=== PATIENT | male | born 1960 | race African-American/Black ===

== ENCOUNTER → 2016-12-27 | Outpatient (CLI) | payer OTHER ==
[~2016-12-27] VITALS: Ht 180.3 cm; Wt 218.0 kg
[~2016-12-27] MED LIST: ASPI81CH CHEW; CHLORHEXIDINE GLUCONATE 2 % 1 PACK (2 CLOTHS) TOPICAL PRN; CLON0.2T PO; DICL75TA PO; DO NOT ADM ANY ANTICOAGULANT DRUGS PRN; EMPA1TAB PO; HYDR-3583 PO; INSULIN HUMAN REGULAR 1,000 UNITS/10 ML VIAL SQ PRN; LACTATED RINGER'S 1000 ML INJ 1,000 ML ONE; LACTATED RINGER'S 1000 ML IV PRN; LIDOCAINE HCL 1% PF 5 ML AMPULE OTHER ONE; LISI-515 PO; METO50TA PO; METOPROLOL TARTRATE 25 MG TAB PO PRN; POVIDONE IODINE 5% (ANTISEPSIS KIT) 4 APPLICATIONS EACH NARE PRN; PROPOFOL 200 MG/20 ML AMP IV ONE; SODIUM CHLORID 0.9% 500 ML IV PRN; SPIR25TA3 PO; VENTAER INH
--- NOTE | 2016-12-27 12:03 | GIPROC ---
[facility] [address] [facility]. [facility], [id number] EGD WITH DILATION PROCEDURE REPORT EXAM DATE: 12/27/2016 PATIENT NAME: Jonathan White MR#: [id number] BIRTHDATE: 1960 ATTENDING: Cortney Cleveland MD ORDER #: [id number] TESTER WASTE DISPOSAL LEAKAGE: Amauri Powers and Alireza Rodriguez STATUS: outpatient INDICATIONS: The patient is a 56 yr old male here for an EGD with dilation due to obesity clearence for gastric sleeve PROCEDURE PERFORMED: EGD w/ biopsy EGD w/ dilation of esophagus via guidewire MEDICATIONS: None and Per Anesthesia. TOPICAL ANESTHETIC: none CONSENT: The patient understands the risks and benefits of the procedure and understands that these risks include, but are not limited to: sedation, allergic reaction, infection, perforation and/or bleeding. Alternative means of evaluation and treatment include, among others: physical exam, x-rays, and/or surgical intervention. The patient elects to proceed with this endoscopic procedure. medical equipment was checked for proper function. Hand hygiene and appropriate measures for infection prevention was taken. After the risks, benefits and alternatives of the procedure were thoroughly explained, Informed consent was verified, confirmed and timeout was successfully executed by the treatment team. The patient was anesthetized with topical anesthesia and the EC-3490Li (Pedi C) endoscope was introduced through the mouth and advanced to the second portion of the duodenum. The instrument was slowly withdrawn as the mucosa was fully examined. Gastritis antrum-biopsy duodenitis second portion-biopsy esophagitis distal esophagus -biopsy stricture distal esophagus s/p dilatation. Dilation was performed at gastroesophageal junction. DILATOR: SIZE(S): RESISTANCE: HEME: APPEARANCE: Dilator: Savary over guidewire Size(s): 16 COMMENT: Retroflexed views revealed a hiatal hernia ADVERSE EVENTS: There were no complications. IMPRESSIONS: 1. Gastritis antrum-biopsy duodenitis second portion-biopsy esophagitis distal esophagus -biopsy stricture distal esophagus s/p dilatation 2. Retroflexed views revealed a hiatal hernia RECOMMENDATIONS: 1. Await biopsy results. Biopsy results will not be ready for 7-10 days. If you don't hear from us in two weeks, call our office for biopsy results. 2. Anti-reflux regimen 3. Continue PPI 4. Dilatations PRN 5. Ok for bariatric surgery from gi point REPEAT EXAM: EGD pending biopsy results Cortney Cleveland MD eSigned: Cortney Cleveland MD 12/27/2016 12:03 PM cc: Lavern wolf M.D. PATIENT NAME: Jonathan White MR#: [id number]
--- NOTE | 2016-12-27 12:07 | GIPROC ---
[facility] [address] [facility]. [facility], [address] COLONOSCOPY PROCEDURE REPORT EXAM DATE: 12/27/2016 PATIENT NAME: Jonathan White MR #: [id number] BIRTHDATE: 1960 ENDOSCOPIST: Cortney Cleveland MD ORDER #: [id number] PURCHASING BUYER: Amauri Powers and Alireza Rodriguez STATUS: outpatient INDICATIONS: The patient is a 56 yr old male here for a colonoscopy due to screening PROCEDURE PERFORMED: Colonoscopy, screening MEDICATIONS: None and Per Anesthesia. PREP QUALITY: poor PREP TYPE:Other: ESTIMATED BLOOD LOSS: None CONSENT: The patient understands the risks and benefits of the procedure and understands that these risks include, but are not limited to: sedation, allergic reaction, infection, perforation and/or bleeding. Alternative means of evaluation and treatment include, among others: physical exam, x-rays, and/or surgical intervention. The patient elects to proceed with this endoscopic procedure. medical equipment was checked for proper function. Hand hygiene and appropriate measures for infection prevention was taken. After the risks, benefits and alternatives of the procedure were thoroughly explained, Informed consent was verified, confirmed and timeout was successfully executed by the treatment team. A digital exam revealed external hemorrhoids The Pentax EC-3490Li endoscope was introduced through the anus and advanced to the cecum, which was identified by both the appendix and ileocecal valve. The instrument was then slowly withdrawn as the colon was fully examined. COLON FINDINGS: Poor prep. Retroflexed views revealed internal hemorrhoids and Retroflexed views revealed small internal hemorrhoids The scope was then completely withdrawn from the patient and the procedure terminated. PROCEDURE WITHDRAWAL TIME:6minutes ADVERSE EVENTS: There were no complications. IMPRESSIONS: 1. Poor prep 2. Retroflexed views revealed internal hemorrhoids 3. Retroflexed views revealed small internal hemorrhoids 4. Revealed external hemorrhoids RECOMMENDATIONS: Benefiber 2 tsp daily RECALL: Return 6 months Colonoscopy Cortney Cleveland MD eSigned: Cortney Cleveland MD 12/27/2016 12:07 PM cc: Lavern Keith M.D and Jose R Santiago M.D.
[2016-12-27 13:15] VITALS: BP 159/81; PULSE 67; RESP 18; TEMP 98; O2SAT 96
--- NOTE | 2016-12-27 16:43 | EKG ---
Date Performed: 12/27/2016 Time Performed: 09:28:25 PTAGE: 56 years EKG: Sinus rhythm WITH OCCASIONAL VENTRICULAR PREMATURE COMPLEXES LOW QRS VOLTAGE IN PRECORDIAL LEADS POSSIBLE ANTERIO R MYOCARDIAL INFARCTION , OF INDETERMINATE AGE Compared to prior tracing no significant change ABNORM AL ECG PREVIOUS TRACING : 03/04/2011 09.11 DOCTOR: Shaye Burt Interpretating Date/Time 12/27/2016 16:40:13
== END ==
LOC: HEND 08:24
PROVIDERS: ATTEND Internal Medicine Gastroenterology
DX: Z01.818 Encounter for other preprocedural examination (principal); E66.01 Morbid (severe) obesity due to excess calories; Z68.44 Body mass index [BMI] 60.0-69.9, adult; K29.70 Gastritis, unspecified, without bleeding; K29.80 Duodenitis without bleeding; K44.9 Diaphragmatic hernia without obstruction or gangrene; K64.4 Residual hemorrhoidal skin tags; K64.8 Other hemorrhoids; K22.2 Esophageal obstruction; K21.0 Gastro-esophageal reflux disease with esophagitis; R19.8 Other specified symptoms and signs involving the digestive system and abdomen; I10 Essential (primary) hypertension; I25.10 Atherosclerotic heart disease of native coronary artery without angina pectoris; G47.30 Sleep apnea, unspecified; Z95.5 Presence of coronary angioplasty implant and graft; Z91.19 Patient's noncompliance with other medical treatment and regimen
CPT/HCPCS: 00740; 43239; 43248; 45378; 88305; 88312; 93005; C1769; J7120

== ENCOUNTER → 2017-01-06 | Day surgery (SDC) | payer OTHER ==
[~2017-01-06] MED LIST changes: +BUPIVACAINE/EPINEPHRINE 0.25% 50 ML VIAL ONE; -CHLORHEXIDINE GLUCONATE 2 % 1 PACK (2 CLOTHS) TOPICAL PRN; -DO NOT ADM ANY ANTICOAGULANT DRUGS PRN; +EPINEPHrine HCL (1:1000) 30 MG/30 ML VIAL ONE; -INSULIN HUMAN REGULAR 1,000 UNITS/10 ML VIAL SQ PRN; +KETOROLAC TROMETHAMINE 30 MG/ML (IVP) VIAL IV PUSH ONE; -LACTATED RINGER'S 1000 ML IV PRN; -LIDOCAINE HCL 1% PF 5 ML AMPULE OTHER ONE; -METOPROLOL TARTRATE 25 MG TAB PO PRN; +MIDAZOLAM HCL 2 MG/2 ML VIAL ONE; +ONDANSETRON HCL 4 MG/2 ML VIAL IV PUSH ONE; -POVIDONE IODINE 5% (ANTISEPSIS KIT) 4 APPLICATIONS EACH NARE PRN; +PROPOFOL 100 MG/10 ML INJ IV ONE; -PROPOFOL 200 MG/20 ML AMP IV ONE; -SODIUM CHLORID 0.9% 500 ML IV PRN; +ceFAZolin 2 GM PREMIX 50 ML ONE; +ceFAZolin INJ 1,000 MG VIAL ONE
--- NOTE | 2017-01-06 10:01 | MP ---
cc: EDGAR STOREY M.D. DATE OF SURGERY: 01/06/2017 PREOPERATIVE DIAGNOSIS: Right knee medial meniscus tear. POSTOPERATIVE DIAGNOSES Right knee medial meniscus tear. PROCEDURE Right knee arthroscopic partial medial meniscectomy. SURGEON Dr. Edgar Storey. COUNTRY SINGER: ТАТЬЯНА Raphael ANESTHESIA General. ESTIMATED BLOOD LOSS: 10 cc. TOURNIQUET TIME: Zero minutes. COMPLICATIONS: None. JUSTIFICATIONS: This patient is a 56-year-old male who injured the right knee had persistent pain in regards to his condition failed conservative clinical exam as well as MRI confirmed the above-named findings. The patient counseled as and alternatives of named surgical procedure wish to surgery, the procedure was explained in detail, a written consent obtained. The patient was identified by name, taken to the operating room and placed supine after general anesthesia was administered as well as 3 grams of IV Ancef. The right thigh was carefully placed in well-padded leg brown right lower extremity was prepped and draped using as isopropyl alcohol, Hibiclens solution, and DuraPrep solution. 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 The medial compartment revealed a complex tear of the midbody and posterior horn of the medial meniscus. An arthroscopic Biter, followed by ostial shaver was introduced into the medial compartment to perform partial medial meniscectomy. The meniscal rim was probed and is stable. 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 The intercondylar notch of the anterior barrel roller operator cruciate ligament. The intact lateral compartment did reveal tearing of the anterior horn, mid bilateral meniscus as well as focal grade 3 and grade 4 chondromalacia changes lateral femoral condyle. An arthroscopic shaver was introduced and lateral compartment for perform partial lateral meniscectomy meniscal rim was probed and noted be stable at the conclusion of the surgical procedure 30 cc of 0.25% Marcaine with epinephrine was injected in the knee joint. The arthroscope portals closed 3-0 Prolene suture. Sterile dressing applied. The patient tolerated the procedure with no intraoperative complications noted. MD CULLEN Baker/juliana /9:39 AM /9:52 AM
== END | disposition home or self-care (01) ==
LOC: ESDC 07:05
PROVIDERS: ATTEND Orthopaedic Surgery Sports Medicine
DX: S83.231A Complex tear of medial meniscus, current injury, right knee, initial encounter (principal)
CPT/HCPCS: 01400; 29881; J0171; J0690; J1885; J2250; J2405; J3010; J7120